=== PATIENT | female | born 1985 | race Caucasian/White ===

== ENCOUNTER 2017-01-22 14:08 | Emergency (ER) | payer OTHER ==
[~2017-01-22] VITALS: Ht 157.5 cm; Wt 64.0 kg
[~2017-01-22 14:08] MED LIST: DOCU-131 PO; IBUP-1222 PO; OXYC-302 PO; PREN1TAB56 PO
[2017-01-22] MEDS ORDERED: SODIUM CHLORIDE FLUSH 10ML SYR IVF ONE (15:00)
[2017-01-22 15:37] LABS: HEMATOCRIT 40.1 % (34.6-47.8); HEMOGLOBIN 13.3 g/dL (11.7-16.4); WHITE BLOOD COUNT 6.7 x10^3/uL (3.4-10)
[2017-01-22 15:45] LABS: ASPARTATE AMINO TRANSFERASE 13 U/L (15-37); BLOOD UREA NITROGEN 10 mg/dL (7-18)
[2017-01-22] MEDS ORDERED: GADOBUTROL 7.5 MMOL/7.5 ML PFS ONE (16:25)
[2017-01-22 17:36] VITALS: BP 112/70
== END 2017-01-22 19:28 | disposition home or self-care (01) ==
LOC: ED 18:55
DX: R10.31 Right lower quadrant pain (principal); F44.9 Dissociative and conversion disorder, unspecified; G81.91 Hemiplegia, unspecified affecting right dominant side
CPT/HCPCS: 36415; 72157; 72158; 80053; 81003; 84703; 85025; 99285; A9585

== ENCOUNTER 2018-04-29 06:11 | Inpatient (IN) | payer BC, MEDICAID ==
[~2018-04-29] VITALS: Ht 157.5 cm; Wt 72.0 kg
[2018-04-29] MEDS ORDERED: SODIUM CITRATE/CITRIC ACID 30 ML UDC ONE (06:24)
[2018-04-29] MEDS ORDERED: METOCLOPRAMIDE 5 MG/ML, 2ML ONE (06:24)
[2018-04-29] MEDS ORDERED: MISOPROSTOL 200 MCG TABLET ONE (06:25)
[2018-04-29] MEDS ORDERED: NEWBORN KIT ONE (06:25)
[2018-04-29] MEDS ORDERED: OXYTOCIN 30U/ 0.9% NaCL 500ML 500 ML ONE (06:25)
[2018-04-29] MEDS ORDERED: SODIUM CITRATE/CITRIC ACID 30 ML UDC PO ONE (06:30)
[2018-04-29] MEDS ORDERED: LACTATED RINGERS 1,000 ML IVBOLUS ONE (06:30)
[2018-04-29] MEDS ORDERED: METOCLOPRAMIDE 5 MG/ML, 2ML IV ONE (06:30)
[2018-04-29 06:48] LABS: BASOPHILS # (AUTO) 0.02 x10^3/uL (0-0.1); BASOPHILS % (AUTO) 0 % (0-1); EOSINOPHILS % (AUTO) 3 % (1-7); LYMPHOCYTES # (AUTO) 1.53 x10^3/uL (1-3.4); LYMPHOCYTES % (AUTO) 17 % (22-44); MD NO; MEAN CORPUSCULAR HEMOGLOBIN 30.2 pg (27.0-34.8); MEAN CORPUSCULAR HGB CONC 34.4 g/dL (32.4-35.8); MEAN CORPUSCULAR VOLUME 87.6 fL (80-100); MEAN PLATELET VOLUME 8.7 fL (7.4-10.4); MONOCYTES # (AUTO) 0.78 x10^3/uL (0.2-0.8); MONOCYTES % (AUTO) 9 % (2-9); NEUTROPHILS # (AUTO) 6.52 x10^3/uL (1.8-6.8); NEUTROPHILS % (AUTO) 71 % (42-75); PLATELET COUNT 192 x10^3/uL (130-400); RED BLOOD COUNT 4.25 x10^6/uL (3.82-5.3); RED CELL DISTRIBUTION WIDTH 13.5 % (9.6-15.2)
[2018-04-29] MEDS: LACTATED RINGERS 1,000 ML IV SCH ×10 (06:51→22:30)
[2018-04-29] MEDS ORDERED: morphine SULFATE/PF 0.5 MG/ML, 10ML ONE (07:33)
[2018-04-29] MEDS ORDERED: DEXAMETHASONE 4 MG/ML, 1ML ONE (07:37)
[2018-04-29] MEDS ORDERED: ONDANSETRON 2MG/ML, 2ML ONE (07:37)
[2018-04-29] MEDS ORDERED: OXYTOCIN 10 UNITS/ML, 1ML ONE (07:37)
[2018-04-29] MEDS ORDERED: CEFAZOLIN 1,000 MG ONE (07:37)
[2018-04-29] MEDS ORDERED: WATER-INJECTION,STERILE 10 ML IV ONE (07:37)
[2018-04-29] MEDS ORDERED: LIDOCAINE 1%, 20ML ONE (07:38)
[2018-04-29] MEDS ORDERED: PHENYLEPHRINE 10 MG/ML ONE (07:38)
[2018-04-29] MEDS ORDERED: EPHEDRINE 50 MG/ML, 1ML ONE (07:38)
[2018-04-29] MEDS: OXYTOCIN 30U/ 0.9% NaCL 500ML 500 ML IV SCH ×4 (08:49→18:49)
[2018-04-29] MEDS ORDERED: METHYLERGONOVINE 0.2 MG/ML IM PRN (09:00)
[2018-04-29] MEDS ORDERED: ACETAMINOPHEN 325 MG TABLET PO PRN (09:00)
[2018-04-29] MEDS ORDERED: OXYcodone/APAP 5/325MG TABLET PO PRN ×2 (09:00→11:00)
[2018-04-29] MEDS ORDERED: CARBOPROST TROMETHAMINE 250 MCG/ML, 1ML IM PRN (09:00)
[2018-04-29] MEDS: PRENATAL VIT/IRON/FA 1 EACH TABLET PO SCH (09:00)
[2018-04-29] MEDS ORDERED: morphine SULFATE 10 MG/ML, 1ML IVPush PRN ×2 (09:00)
[2018-04-29] MEDS ORDERED: ONDANSETRON 2MG/ML, 2ML IV PRN ×2 (09:00→11:00)
[2018-04-29] MEDS ORDERED: MISOPROSTOL 200 MCG TABLET PR PRN (09:00)
[2018-04-29] MEDS ORDERED: MEPERIDINE/PF 50 MG/ML ONE (09:19)
[2018-04-29] MEDS ORDERED: KETOROLAC 30 MG/1 ML ONE ×2 (09:44→09:45)
[2018-04-29] MEDS ORDERED: MORPHINE SULFATE 4 MG/ML, 1ML ONE (09:44)
[2018-04-29] MEDS: morphine SULFATE 10 MG/ML, 1ML IVPush PRN ×2 (09:47→10:00)
[2018-04-29] MEDS: KETOROLAC 30 MG/1 ML IV PRN ×3 (09:47→23:40)
[2018-04-29] MEDS ORDERED: OXYcodone/APAP 5/325MG TABLET ONE (10:44)
[2018-04-29] MEDS: OXYcodone/APAP 5/325MG TABLET PO PRN ×2 (10:47→17:26)
[2018-04-29] MEDS ORDERED: EPHEDRINE 50 MG/ML, 1ML IVPush PRN (11:00)
[2018-04-29] MEDS ORDERED: NALOXONE 0.4 MG/ML, 1ML IV PRN (11:00)
[2018-04-29] MEDS ORDERED: DO NOT GIVE XX SCH (11:00)
[2018-04-29 11:21] VITALS: BP 118/74
[2018-04-29] MEDS ORDERED: MEPERIDINE 50 MG TABLET PO ONE (11:30)
[2018-04-29 15:44] VITALS: BP 127/76
[2018-04-29 16:59] LABS: BASOPHILS # (AUTO) 0.05 x10^3/uL (0-0.1); BASOPHILS % (AUTO) 0 % (0-1); EOSINOPHILS % (AUTO) 0 % (1-7); LYMPHOCYTES # (AUTO) 1.35 x10^3/uL (1-3.4); LYMPHOCYTES % (AUTO) 9 % (22-44); MD NO; MEAN CORPUSCULAR HEMOGLOBIN 30.1 pg (27.0-34.8); MEAN CORPUSCULAR HGB CONC 33.9 g/dL (32.4-35.8); MEAN CORPUSCULAR VOLUME 88.7 fL (80-100); MEAN PLATELET VOLUME 8.8 fL (7.4-10.4); MONOCYTES % (AUTO) 5 % (2-9); NEUTROPHILS % (AUTO) 86 % (42-75); PLATELET COUNT 193 x10^3/uL (130-400); RED BLOOD COUNT 4.07 x10^6/uL (3.82-5.3); RED CELL DISTRIBUTION WIDTH 13.2 % (9.6-15.2)
[2018-04-29 19:40] VITALS: BP 111/71
[2018-04-30] VITALS: BP 118/72
[2018-04-30] MEDS: LACTATED RINGERS 1,000 ML IV SCH ×6 (00:49→14:49)
[2018-04-30] MEDS: OXYTOCIN 30U/ 0.9% NaCL 500ML 500 ML IV SCH ×3 (02:21→14:49)
[2018-04-30 04:00] VITALS: BP 113/69
[2018-04-30] MEDS: OXYcodone/APAP 5/325MG TABLET PO PRN ×4 (05:02→17:38)
[2018-04-30] MEDS: KETOROLAC 30 MG/1 ML IV PRN (05:55)
[2018-04-30 08:00] VITALS: BP 107/72
[2018-04-30] MEDS: PRENATAL VIT/IRON/FA 1 EACH TABLET PO SCH (09:10)
[2018-04-30] MEDS: IBUPROFEN 600 MG TABLET PO PRN ×3 (12:12→23:50)
[2018-04-30] MEDS ORDERED: OXYcodone IR 5MG TABLET PO PRN (16:30)
[2018-04-30] MEDS: SIMETHICONE 80 MG CHEW TAB PO PRN (17:37)
[2018-04-30] MEDS: DOCUSATE 100 MG CAPSULE PO PRN (17:38)
[2018-04-30 19:50] VITALS: BP 131/83
[2018-04-30] MEDS: OXYcodone IR 5MG TABLET PO PRN (21:23)
[2018-05-01] MEDS ORDERED: MEPERIDINE/PF 50 MG/ML IM PRN (00:30)
[2018-05-01] MEDS: OXYcodone IR 5MG TABLET PO PRN ×6 (01:59→23:48)
[2018-05-01] MEDS: IBUPROFEN 600 MG TABLET PO PRN ×3 (05:57→23:48)
[2018-05-01 09:00] VITALS: BP 117/66
[2018-05-01] MEDS: DOCUSATE 100 MG CAPSULE PO PRN ×2 (10:49→19:40)
[2018-05-01] MEDS: PRENATAL VIT/IRON/FA 1 EACH TABLET PO SCH (10:49)
[2018-05-01 19:30] VITALS: BP 121/79
[2018-05-01 21:45] VITALS: BP 126/75
[2018-05-02 07:00] VITALS: BP 133/80
[2018-05-02] MEDS: IBUPROFEN 600 MG TABLET PO PRN ×3 (07:03→18:42)
[2018-05-02] MEDS: DOCUSATE 100 MG CAPSULE PO PRN ×2 (07:03→18:45)
[2018-05-02] MEDS: PRENATAL VIT/IRON/FA 1 EACH TABLET PO SCH (07:03)
[2018-05-02] MEDS: OXYcodone IR 5MG TABLET PO PRN ×3 (07:04→18:42)
[2018-05-02 20:45] VITALS: BP 126/75
[2018-05-03] MEDS: SIMETHICONE 80 MG CHEW TAB PO PRN ×2 (00:53→14:31)
[2018-05-03] MEDS: IBUPROFEN 600 MG TABLET PO PRN ×3 (00:53→14:31)
[2018-05-03] MEDS: OXYcodone IR 5MG TABLET PO PRN ×3 (00:54→14:31)
[2018-05-03 08:30] VITALS: BP 138/83
[2018-05-03] MEDS: DOCUSATE 100 MG CAPSULE PO PRN (08:30)
[2018-05-03] MEDS: PRENATAL VIT/IRON/FA 1 EACH TABLET PO SCH (08:30)
[2018-05-03] MEDS ORDERED: OXYC-302 PO (13:27)
[2018-05-03] MEDS ORDERED: SIME80TA16 PO (13:29)
[2018-05-03] MEDS ORDERED: OXYC5TAB3 PO (13:31)
== END 2018-05-03 15:00 | disposition home or self-care (01) | DRG 788 ==
LOC: LDIP 06:11 → 2NW 10:58
PROVIDERS: ADMIT Obstetrics & Gynecology; ATTEND Obstetrics & Gynecology
PROC: 10D00Z1 Extraction of Products of Conception, Low, Open Approach (ICD-10-PCS; principal; 2018-04-29)
DX: O24.420 Gestational diabetes mellitus in childbirth, diet controlled (principal); O34.211 Maternal care for low transverse scar from previous cesarean delivery; O99.72 Diseases of the skin and subcutaneous tissue complicating childbirth; L91.0 Hypertrophic scar; Z37.0 Single live birth; Z3A.39 39 weeks gestation of pregnancy
CPT/HCPCS: 36415; 82803; 82962; 85025; 86850; 86900; G0378; J0690; J1100; J1885; J2274; J2405; J3490; J2270; J2370; J2590; J2765; J7120

== ENCOUNTER 2018-10-07 19:57 | Emergency (ER) | payer BC, MEDICAID ==
[~2018-10-07] VITALS: Ht 154.9 cm; Wt 71.2 kg
[~2018-10-07 19:57] MED LIST changes: +OXYC5TAB3 PO; +SIME80TA16 PO
[2018-10-07 20:02] VITALS: BP 126/82
[2018-10-07] MEDS ORDERED: NORE-88 PO (20:06)
== END 2018-10-07 21:01 | disposition home or self-care (01) ==
LOC: ED 20:45
DX: L72.3 Sebaceous cyst (principal); D17.0 Benign lipomatous neoplasm of skin and subcutaneous tissue of head, face and neck
CPT/HCPCS: 99283